=== PATIENT | female | born 1990 | race Caucasian/White ===

== ENCOUNTER 2021-02-24 11:18 | Outpatient (CLI) | payer OTHER ==
[2021-02-24 11:50] VITALS: BP 108/59
--- NOTE | 2021-02-24 12:25 | PROVIDER PROGRESS NOTE ---
- HPI Chief Complaint: Labor Current : Vital Signs Temperature 98.2 F 02/24/21 11:44 Heart Rate 75 02/24/21 11:44 Respiratory Rate 17 02/24/21 11:44 Blood Pressure 108/59 L 02/24/21 11:44 O2 Saturation 100 02/24/21 11:44 Temperature 98.2 F 02/24/21 11:44 Heart Rate 75 02/24/21 11:44 Respiratory Rate 17 02/24/21 11:44 Blood Pressure 108/59 L 02/24/21 11:44 O2 Saturation 100 02/24/21 11:44 - Procedures OB Procedure Performed: NST Diagnosis/Indication for NST: labor NST Procedure: NST [id number] for labor 150s, moderate variability, no decelerations, positive accelerations [place]: no contractions NST reactive - Plan Plan: 30yo at 25.3w presenting with cramping starting this morning. Denies leaking fluid or vaginal bleeding. Also reports she tripped yesterday and fell on her hands and knees, denies abdominal trauma. Fall yesterday morning and has not had any bleeding since that time. She lives in [place], care at [facility] due to SVT. otherwise uncomplicated. Allergies: ventolin, peanuts Meds: Metoprolol Med: SVT Surg: ablation for SVT Social: Denies DEEPAK Fam: noncontributory VSS GEN: NAD CV: Regular rate Resp: Breathing unlabored Abd: soft, nt Ext: nt, no edema TV US: CL 3.8cm NST reactive, not rosanna 30yo at 25.3w, false labor second trimester - monitoring reassuring - labor precautions - Follow up as scheduled with primary OB
== END 2021-02-24 12:30 | disposition home or self-care (01) ==
LOC: WFO 11:18 → FBP 11:24 → WFO 12:30
PROVIDERS: ATTEND Obstetrics & Gynecology
DX: O47.02 False labor before 37 completed weeks of gestation, second trimester (principal); Z3A.25 25 weeks gestation of pregnancy; Z86.79 Personal history of other diseases of the circulatory system; Z79.899 Other long term (current) drug therapy
CPT/HCPCS: 99214

== ENCOUNTER 2021-04-05 02:53 | Emergency (ER) | payer OTHER ==
[2021-04-05 03:08] VITALS: BP 124/69
--- NOTE | 2021-04-05 03:54 | ED Physician Documentation ---
History of Present Illness - Stated complaint Stated Complaint: EDEMA - Chief complaint Chief Complaint: Ext Problem - History obtained from History obtained from: Patient - Additonal information Additional information: 30yF with pmh SVT on metoprolol, currently 30 and 1 (lmp 8) c/by polyhydramnios on recent ultrasound p/w LLE>RLE swelling for the past 18 hours. patient was sent from thursday [facility] for ultrasound. denies pain, erythema, calor to calf but states her small dog has been jumping on both legs lately and she has ecchymosis to the L calf>R. denies soa at present, cough, hemoptysis, history of clots. She had BL leg swelling last week and was on a short course of lasix. denies urinary sx , contractions, vag bleeding or abnormal discharge. Review of Systems Ten Systems: 10 systems reviewed and negative Constitutional: denies: Fever, Chills Cardiac: denies: Chest pain / pressure Respiratory: denies: Dyspnea, Cough GI: denies: Abdominal Pain PD PAST MEDICAL HISTORY - Present Medications Home Medications: Ambulatory Orders Medication Instructions Recorded Confirmed Metoprolol Succinate [Toprol Xl] 25 mg PO ONCE 04/05/21 04/05/21 Pnv No.95/Ferrous Fum/Folic AC 1 tab PO DAILY 04/05/21 04/05/21 [ Caplet] - Allergies Allergies/Adverse Reactions: Allergies Allergy/AdvReac Type Severity Reaction Status Date / Time albuterol [From Ventolin HFA] AdvReac Unknown Verified 04/05/21 03:09 shrimp AdvReac Unknown Verified 04/05/21 03:09 PD ED PE NORMAL - Vitals Vital signs reviewed: Yes - General General: Alert and oriented X 3, No acute distress, Well developed/nourished - HEENT HEENT: Atraumatic, PERRL, EOMI - Neck Neck: Supple, no meningeal sign - Cardiac Cardiac: RRR - Respiratory Respiratory: No respiratory distress, Clear bilaterally - Abdomen Abdomen: Non tender, Non distended - Derm Derm: Normal color, Warm and dry - Extremities Extremities: No deformity, No calf tenderness / cord, Other (BL 1+ edema. BL posterior calves with ecchymosis in varying stages of healing) - Neuro Neuro: Alert and oriented X 3, No motor deficit, No sensory deficit - Psych Psych: Normal mood, Normal affect Results - Vitals Vitals: Vital Signs - 24 hr 04/05/21 02:58 Temperature 36.6 C Heart Rate 73 Respiratory 16 Rate Blood Pressure 124/69 O2 Saturation 98 Oxygen O2 Source Room air PD MEDICAL DECISION MAKING - ED course ED course: HR 142. patient had bloodwork done today that was unremarkable with exception of elevated d-dimer 900 and was sent here for ultrasound. We have no patient care technician instructor in the hospital at night and are limiting studies for call in, therefore I advised her to keep her appointment at for noon today and to request her ob- ob/gyn doctor Dr. Zabala order outpatient ultrasound at that time. Strict return precautions given. Departure - Departure Disposition: 01 Home, Self Care Clinical Impression: Leg swelling Condition: Good Instructions: ED Leg Swelling Unilateral Comments: You were seen in the ED for evaluation of leg swelling. Please follow up with your appointment with your automobile drivers at noon today for outpatient ultrasound to evaluate for DVT. Return to the ED if you develop new or worsening symptoms or have other concerns.
== END 2021-04-05 03:54 | disposition home or self-care (01) ==
LOC: ED 02:53
DX: O12.03 Gestational edema, third trimester (principal); Z3A.31 31 weeks gestation of pregnancy
CPT/HCPCS: 99281; 99283

== ENCOUNTER 2021-06-01 02:00 | Outpatient (CLI) | payer OTHER | END 2021-06-01 02:01 | disposition critical access hospital (66) | LOC: EMS 02:00 | DX: O90.89 Other complications of the puerperium, not elsewhere classified (principal); M54.50 Low back pain, unspecified; R11.0 Nausea | CPT/HCPCS: A0425; A0427 ==

== ENCOUNTER 2021-06-01 02:21 | Inpatient (IN) | payer OTHER ==
--- NOTE | 2021-06-01 02:37 | ED Physician Documentation ---
PD HPI ABD PAIN - Stated complaint Stated Complaint: NAUSEA/BACK PX - Additional information Additional information: Patient is a 30-year-old female, presenting to the emergency department with past medical significant for recent hospitalization, and delivery in setting of preeclampsia with chief complaints of abdominal pain, nausea, vomiting. Reports discharge from the [facility] a few days ago after delivery due to arrest at 6 cm. Reports initially she was having abdominal pain with nausea and vomiting which prompted her to be evaluated at [facility], and when she was subsequently identified to be preeclamptic she was transferred to the [facility] for induction of labor. She returns today with abdominal, low back pain with associated nausea vomiting which she reports her symptoms similar to those which which she had originally. Review of Systems Ten Systems: 10 systems reviewed and negative Constitutional: denies: Fever Eyes: denies: Loss of vision Ears: denies: Loss of hearing Nose: denies: Rhinorrhea / runny nose Throat: denies: Dental pain / toothache Cardiac: denies: Chest pain / pressure GI: reports: Abdominal Pain, Nausea, Vomiting : denies: Dysuria Skin: denies: Rash Musculoskeletal: denies: Neck pain PD PAST MEDICAL HISTORY - Present Medications Home Medications: Ambulatory Orders Medication Instructions Recorded Confirmed Metoprolol Succinate [Toprol Xl] 25 mg PO ONCE 04/05/21 06/01/21 Pnv No.95/Ferrous Fum/Folic AC 1 tab PO DAILY 04/05/21 06/01/21 [ Caplet] Furosemide [Lasix] 20 mg PO DAILY 06/01/21 06/01/21 Furosemide [Lasix] 20 mg PO ONCE 06/01/21 06/01/21 Metoprolol Succinate [Toprol Xl] 25 mg PO ONCE 06/01/21 06/01/21 NIFEdipine [Procardia Xl] 30 mg PO DAILY 06/01/21 06/01/21 Oxycodone HCl [Roxicodone] 5 mg PO PRN PRN 06/01/21 06/01/21 Potassium Chloride 20 meq PO DAILY 06/01/21 06/01/21 - Allergies Allergies/Adverse Reactions: Allergies Allergy/AdvReac Type Severity Reaction Status Date / Time peanut Allergy Unknown Verified 06/01/21 02:37 albuterol [From Ventolin HFA] AdvReac Unknown Verified 04/05/21 03:09 shrimp AdvReac Unknown Verified 04/05/21 03:09 PD ED PE NORMAL - General General: Alert and oriented X 3 - HEENT HEENT: Atraumatic - Neck Neck: Supple, no meningeal sign - Cardiac Cardiac: RRR, No gallop - Respiratory Respiratory: No respiratory distress, Clear bilaterally - Abdomen Abdomen: Normal bowel sounds, Other (Diffuse lower quadrant tenderness). No: Non tender - Female Female : Deferred - Derm Derm: Normal color - Extremities Extremities: No deformity - Neuro Neuro: Alert and oriented X 3, robotic maintenance technician 2-12 intact, No motor deficit, No sensory deficit, Normal speech Results - Vitals Vitals: Vital Signs - 24 hr 06/01/21 06/01/21 06/01/21 02:30 02:57 05:03 Temperature 36.6 C Heart Rate 72 70 77 Respiratory 18 14 16 Rate Blood Pressure 155/93 H 138/83 H 132/79 H O2 Saturation 96 98 98 Oxygen O2 Source Room air - EKG (time done) 0316 Rate: Rate (enter#) (70) Rhythm: NSR [place]: Normal Intervals: Normal MT, QRS normal. No: Prolonged QT QRS: Normal Ischemia: Normal ST segments. No: Hyperacute T waves, T wave inversion Computer interpretation: Agree with computer - Labs Labs: Laboratory Tests 06/01/21 06/01/21 06/01/21 02:56 02:56 02:56 WBC 21.0 H RBC 3.40 L Hgb 10.6 L Hct 31.2 L MCV 91.8 MCH 31.2 H MCHC 34.0 RDW 13.8 Plt Count 338 MPV 9.2 Neut # (Auto) Not Reportable Lymph # (Auto) Not Reportable White # (Auto) Not Reportable Eos # (Auto) Not Reportable Baso # (Auto) Not Reportable Absolute Nucleated RBC Not Reportable Total Counted 100 Band Neuts % (Manual) 0 Abnorm Lymph % (Manual) 0 Nucleated RBC % Not Reportable Neutrophils # (Manual) 17.2 H Lymphocytes # (Manual) 2.3 Monocytes # (Manual) 1.1 H Eosinophils # (Manual) 0.4 Basophils # (Manual) 0.0 Nucleated RBCs 1 Differential Comment MANUAL DIFFERENTIAL WBC Morphology NORMAL APPEARANCE Platelet Estimate NORMAL (130-450,000) Platelet Morphology NORMAL APPEARANCE RBC Morph Micro Appear NORMAL APPEARANCE PT 10.0 INR 0.9 Sodium 136 Potassium 4.0 Chloride 102 Carbon Dioxide 22 Anion Gap 12.0 BUN 20 Creatinine 0.7 Estimated GFR (MDRD) 98 Glucose 121 H Lactic Acid Calcium 9.0 Phosphorus 3.5 Magnesium 1.9 Total Bilirubin 0.8 AST 25 ALT 18 Alkaline Phosphatase 134 H Total Creatine Kinase 16 L B-Natriuretic Peptide Total Protein 7.3 Albumin 3.3 Globulin 4.0 Albumin/Globulin Ratio 0.8 L Lipase 30 TSH Urine Color Urine Clarity Urine pH Ur Specific [place] Urine Protein Urine Glucose (UA) Urine Ketones Urine Occult Blood Urine Nitrite Urine Bilirubin Urine Urobilinogen Ur Leukocyte Esterase Urine RBC Urine WBC Ur Squamous Epith Cells Urine Bacteria Ur Microscopic Review Urine Culture Comments Urine Opiates Screen Ur Oxycodone Screen Urine Methadone Screen Ur Propoxyphene Screen Ur Barbiturates Screen Ur Tricyclics Screen Ur Phencyclidine Scrn Ur Amphetamine Screen U Methamphetamines Scrn U Benzodiazepines Scrn Urine Cocaine Screen U Cannabinoids Screen Ethyl Alcohol < 5.0 06/01/21 06/01/21 06/01/21 02:56 02:56 03:06 WBC RBC Hgb Hct MCV MCH MCHC RDW Plt Count MPV Neut # (Auto) Lymph # (Auto) White # (Auto) Eos # (Auto) Baso # (Auto) Absolute Nucleated RBC Total Counted Band Neuts % (Manual) Abnorm Lymph % (Manual) Nucleated RBC % Neutrophils # (Manual) Lymphocytes # (Manual) Monocytes # (Manual) Eosinophils # (Manual) Basophils # (Manual) Nucleated RBCs Differential Comment WBC Morphology Platelet Estimate Platelet Morphology RBC Morph Micro Appear PT INR Sodium Potassium Chloride Carbon Dioxide Anion Gap BUN Creatinine Estimated GFR (MDRD) Glucose Lactic Acid 0.9 Calcium Phosphorus Magnesium Total Bilirubin AST ALT Alkaline Phosphatase Total Creatine Kinase B-Natriuretic Peptide 15 Total Protein Albumin Globulin Albumin/Globulin Ratio Lipase TSH 1.34 Urine Color Urine Clarity Urine pH Ur Specific [place] Urine Protein Urine Glucose (UA) Urine Ketones Urine Occult Blood Urine Nitrite Urine Bilirubin Urine Urobilinogen Ur Leukocyte Esterase Urine RBC Urine WBC Ur Squamous Epith Cells Urine Bacteria Ur Microscopic Review Urine Culture Comments Urine Opiates Screen Ur Oxycodone Screen Urine Methadone Screen Ur Propoxyphene Screen Ur Barbiturates Screen Ur Tricyclics Screen Ur Phencyclidine Scrn Ur Amphetamine Screen U Methamphetamines Scrn U Benzodiazepines Scrn Urine Cocaine Screen U Cannabinoids Screen Ethyl Alcohol 06/01/21 06/01/21 04:15 04:15 WBC RBC Hgb Hct MCV MCH MCHC RDW Plt Count MPV Neut # (Auto) Lymph # (Auto) White # (Auto) Eos # (Auto) Baso # (Auto) Absolute Nucleated RBC Total Counted Band Neuts % (Manual) Abnorm Lymph % (Manual) Nucleated RBC % Neutrophils # (Manual) Lymphocytes # (Manual) Monocytes # (Manual) Eosinophils # (Manual) Basophils # (Manual) Nucleated RBCs Differential Comment WBC Morphology Platelet Estimate Platelet Morphology RBC Morph Micro Appear PT INR Sodium Potassium Chloride Carbon Dioxide Anion Gap BUN Creatinine Estimated GFR (MDRD) Glucose Lactic Acid Calcium Phosphorus Magnesium Total Bilirubin AST ALT Alkaline Phosphatase Total Creatine Kinase B-Natriuretic Peptide Total Protein Albumin Globulin Albumin/Globulin Ratio Lipase TSH Urine Color YELLOW Urine Clarity CLEAR Urine pH 6.5 Ur Specific [place] 1.015 Urine Protein NEGATIVE Urine Glucose (UA) NEGATIVE Urine Ketones NEGATIVE Urine Occult Blood MODERATE H Urine Nitrite NEGATIVE Urine Bilirubin NEGATIVE Urine Urobilinogen 0.2 (NORMAL) Ur Leukocyte Esterase NEGATIVE Urine RBC 6-10 H Urine WBC 0-3 Ur Squamous Epith Cells MOD Squamous H Urine Bacteria Rare Ur Microscopic Review INDICATED Urine Culture Comments NOT INDICATED Urine Opiates Screen NEGATIVE Ur Oxycodone Screen NEGATIVE Urine Methadone Screen NEGATIVE Ur Propoxyphene Screen NEGATIVE Ur Barbiturates Screen NEGATIVE Ur Tricyclics Screen NEGATIVE Ur Phencyclidine Scrn NEGATIVE Ur Amphetamine Screen NEGATIVE U Methamphetamines Scrn NEGATIVE U Benzodiazepines Scrn NEGATIVE Urine Cocaine Screen NEGATIVE U Cannabinoids Screen NEGATIVE Ethyl Alcohol PD MEDICAL DECISION MAKING - ED course Complexity details: d/w patient, d/w nursing education consultant ED course: Patient is a 30-year-old female with past medical significant for recent delivery in setting of preeclampsia presenting to the emergency d epartment with elevated blood pressure, back pain, abdominal pain with associated nausea and vomiting. Arrival to the emergency department with blood pressure initial systolicsGreater than 155. Acutely distressed on arrival with low level tachycardia. IV access was obtained, IV magnesium initiated. Did order for comprehensive labs. Patient's care was discussed with CUSTOM FRAME ASSEMBLER, Dr. Longo. Labs obtained demonstrated a leukocytosis with white blood cell count 21 but no significant electrolyte abnormality or renal disease. Patient was given medication for pain and nausea in the emergency department. Her blood pressure did respond to 2 IV magnesium with repeat systolics in the 130s. She was transferred from the emergency department to L&D for further evaluation and treatment. Departure - Departure Disposition: [address] [place] [address]/[facility] Clinical Impression: Preeclampsia
[2021-06-01] MEDS ORDERED: MAGNESIUM SULFATE 4 GRAM 4 GM/50 ML BAG IV ONE (02:41)
[2021-06-01] MEDS ORDERED: MAGNESIUM SULFATE 2 GRAM 4 GM/100 ML BAG IV ONE (02:56)
[2021-06-01] MEDS ORDERED: IOVERSOL 320 50 ML VIAL ONE (03:11)
[2021-06-01 03:13] LABS: BASOPHILS % (AUTO) 0.4 %; EOSINOPHILS % (AUTO) 1.1 %; HCT - HEMATOCRIT 31.2 % (37.0-47.0); HGB - HEMOGLOBIN 10.6 g/dL (12.0-16.0); LYMPHOCYTES % (AUTO) 9.6 %; MEAN CORPUSCULAR HEMOGLOBIN 31.2 pg (27.0-31.0); MEAN CORPUSCULAR VOLUME 91.8 fL (81.0-99.0); MEAN PLATELET VOLUME 9.2 fL (7.9-10.8); MONOCYTES % (AUTO) 5.3 %; NEUTROPHILS % (AUTO) 77.3 %; PLT - PLATELET COUNT 338 10^3/uL (130-450); RED CELL DISTRIBUTION WIDTH 13.8 % (12.0-15.0)
[2021-06-01 03:14] LABS: ABNORMAL LYMPHS % (MANUAL) 0 %; BAND NEUTROPHILS % (MANUAL) 0 %
[2021-06-01 03:21] LABS: INR 0.9 (0.8-1.2)
[2021-06-01 03:28] LABS: ALBUMIN 3.3 g/dL (3.2-5.5); ALBUMIN/GLOBULIN RATIO 0.8 (1.0-2.2); ALKALINE PHOSPHATASE 134 IU/L (42-121); ALT ALANINE AMINOTRANSFERASE 18 IU/L (10-60); AST ASPARTATE AMINOTRANSFERASE 25 IU/L (10-42); BILIRUBIN,TOTAL 0.8 mg/dL (0.2-1.0); BUN - BLOOD UREA NITROGEN 20 mg/dL (6-20); CARBON DIOXIDE - CO2 22 mmol/L (21-32); CHLORIDE 102 mmol/L (101-111); CK- CREATINE KINASE 16 IU/L (22-269); CREATININE 0.7 mg/dL (0.4-1.0); ETOH - ETHANOL < 5.0 mg/dL; GFR - MDRD 98 (>89); GLUCOSE 121 mg/dL (70-100); LIPASE 30 U/L (22-51); MAGNESIUM 1.9 mg/dL (1.7-2.8); PHOSPHORUS 3.5 mg/dL (2.5-4.6); SODIUM 136 mmol/L (135-145); TOTAL PROTEIN 7.3 g/dL (6.7-8.2)
[2021-06-01 03:33] LABS: EOSINOPHILS # (MANUAL) 0.4 10^3/uL (0-0.7); LYMPHOCYTES # (MANUAL) 2.3 10^3/uL (1.5-3.5); LYMPHOCYTES % (MANUAL) 11 %; MONOCYTES # (MANUAL) 1.1 10^3/uL (0.0-1.0); NEUTROPHILS # (MANUAL) 17.2 10^3/uL (1.5-6.6); NUCLEATED RBC (MANUAL) 1 %; PLATELET ESTIMATE, MANUAL NORMAL (130-450,000) (NORMAL); PLATELET MORPHOLOGY NORMAL APPEARANCE (NORMAL); RBC MORPHOLOGY (MULTIPLE) NORMAL APPEARANCE (NORMAL); WBC MORPHOLOGY (MULTIPLE) NORMAL APPEARANCE (NORMAL)
--- OUTSIDE RECORDS SUMMARY | 2021-06-01 03:33 | EXTERNAL MEDICAL SUMMARY RPT | Continuity of Care Document ---
:1990 Author Organization [facility] Address [address] [place] [address] Phone Care Team Providers Name Role Phone Miscellaneous, Doctor Unavailable Unavailable Allergies No information. Encounters No information. Medications No information. Problems Procedures date description facility [id number] [facility] Results No information.
[2021-06-01 03:34] LABS: DIFFERENTIAL COMMENT MANUAL DIFFERENTIAL
[2021-06-01] MEDS ORDERED: LORazepam 2 MG/ML VIAL IVP STA (04:37)
[2021-06-01 04:51] LABS: BILIRUBIN,URINE NEGATIVE (NEGATIVE); CLARITY,URINE CLEAR (CLEAR); GLUCOSE, URINE (UA) NEGATIVE (NEGATIVE); KETONES,URINE (UA) NEGATIVE (NEGATIVE); LEUKOCYTE ESTERASE, URINE NEGATIVE (NEGATIVE); MUDS CUTOFF CONCENTRATIONS CUTOFF CONC BELOW:; NITRITE,URINE NEGATIVE (NEGATIVE); OCCULT BLOOD,URINE MODERATE (NEGATIVE); PH,URINE 6.5 PH (5.0-7.5); PROTEIN,URINE NEGATIVE (NEGATIVE); UROBILINOGEN,URINE 0.2 (NORMAL) E.U./dL (NORMAL)
[2021-06-01 04:52] LABS: AMPHETAMINE SCREEN,URINE NEGATIVE (NEGATIVE); BARBITURATE SCREEN,UR NEGATIVE (NEGATIVE); BENZODIAZEPINES SCREEN, URINE NEGATIVE (NEGATIVE); COCAINE SCREEN URINE NEGATIVE (NEGATIVE); METHADONE SCREEN, URINE NEGATIVE (NEGATIVE); METHAMPHETAMINES SCREEN, URINE NEGATIVE (NEGATIVE); OPIATE SCREEN, URINE NEGATIVE (NEGATIVE); OXYCODONE SCREEN, URINE NEGATIVE (NEGATIVE); PROPOXYPHENE SCREEN, URINE NEGATIVE (NEGATIVE); THC CANNABINOID SCREEN, URINE NEGATIVE (NEGATIVE); TRICYCLIC ANTIDEPRESSANT,URINE NEGATIVE (NEGATIVE); WBC,URINE 0-3 /HPF (0-5)
[2021-06-01 04:53] LABS: BACTERIA,URINE Rare /HPF (None Seen); SQUAMOUS EPITHELIAL CELL,UR MOD Squamous (<= Few)
--- NOTE | 2021-06-01 05:48 | HISTORY & PHYSICAL EXAMINATION ---
History and Physical - History and Physical HPI: Patient is a 30-year-old presenting today 5 days from a primary low-transverse section after a failed induction of labor. She was in Thursday and began having back pain and, abdominal pain, nausea and vomiting. She initially presented to [facility] and was transferred to [facility] for her delivery. She developed preeclampsia with severe features and was started on magnesium sulfate and blood pressure control. She was discharged on day 3 with nifedipine XL 30 mg, furosemide 20 mg daily, potassium supplementation. With nausea and vomiting and 5/10 abdominal pain that felt like a band around her abdomen. Symptoms seem better after hydration and pain control in the ED. She presented today to the ED All other symptoms reviewed and were negative except per HPI. PMH SVT PSH Low-transverse section OB History G1 P1 1. 05/27/2021, 38 weeks, primary low-transverse section, failure to progress, preeclampsia severe features SH Denies tobacco, alcohol, drug Family History noncontributory Allergies Peanuts, albuterol, shrimp Medications Metoprolol succinate 12.5 mg every morning, 25 mg p.m. Furosemide 20 mg daily Potassium supplements Nifedipine XL 30 mg daily Physical exam: Temp Pulse Resp BP Pulse Ox 97.8 F 77 16 132/79 H 98 06/01/21 02:30 06/01/21 05:03 06/01/21 05:03 06/01/21 05:03 06/01/21 05:03 General: Alert when awakened, but falls asleep easily. No acute distress Head: Normal cephalic atraumatic Eyes: PERRLA, extraocular motions intact. Respiratory: Normal rate of respiration. No accessory muscle use, normal resp iratory effort. Cardiovascular: Regular rate and rhythm Abdomen: Soft, nondistended. Appropriately tender in abdomen. Incision clean, dry, intact. Steri-Strips in place. Small amount of bruising at the lower border of the incision. No guarding or rebound. Back: No CVA tenderness Extremities: Normal range of motion Neuro: Oriented x3. Normal movements Psych: Appropriate mood and affect. Normal judgment and insight Labs: Platelet: 338 AST/ALT: 25/18 Creatinine 0.7 Urine: Negative for protein WBC: 21.0 Plan 30-year-old G1, P1 presenting with preeclampsia severe features Preeclampsia severe features -Patient with severe range blood pressures and was started on magnesium sulfate in the ED. Upon my examination, blood pressures have normalized. -patient has received 4 g bolus of magnesium. Mag level currently pending. Patient had an issue clearing magnesium at [facility] during her stay. Will continue at 1 g/h and reassess with magnesium level. -As she is already received greater than 24 hours of magnesium sulfate, plan for abbreviated magnesium sulfate therapy as long as blood pressures remain nonsevere. Will reassess as the day goes. -Plan to discharge in 1-2 days. Status post primary low-transverse section -Incision remains healthy appearing. -Tylenol and ibuprofen for pain control Nausea: - unknown etiology at this time. Does feel better currently -Plan to reassess when patient is rested Leukocytosis -Unknown etiology at this time. Does not appear sick. May be related to pain versus postsurgical, but will monitor at this time. No fever, chills, discharge, uterine pain. Will continue to assess for possible infection. -Repeat CBC this afternoon SVT: -Continue home metoprolol. Pulses normal. -12.5mg in the morning, 25 mg at night. This is her regimen. Can likely return to once a day dosing, but will not make changes in the acute setting that may complicate recover.
[2021-06-01] MEDS ORDERED: MAGNESIUM SULFATE IN WATER 20 GM/500 ML IV.SOLN IV SCH (05:56)
[2021-06-01] MEDS ORDERED: LACTATED RINGERS 1,000 ML IV SCH ×2 (06:00→06:14)
[2021-06-01] MEDS: IBUPROFEN 600 MG TABLET PO SCH ×3 (06:48→18:34)
[2021-06-01] MEDS: ACETAMINOPHEN 500 MG TABLET PO SCH ×2 (06:48→15:03)
[2021-06-01] MEDS: SIMETHICONE CHEW 80 MG TABLET PO PRN ×2 (09:24→12:15)
[2021-06-01] MEDS: DOCUSATE SODIUM 100 MG CAPSULE PO PRN ×2 (09:24→21:20)
[2021-06-01] MEDS: METOPROLOL SUCCINATE 25 MG TABLET PO SCH (09:24)
[2021-06-01] MEDS: NIFEdipine ER 30 MG TABLET PO SCH (10:38)
[2021-06-01 14:25] LABS: HCT - HEMATOCRIT 29.4 % (37.0-47.0); HGB - HEMOGLOBIN 10.1 g/dL (12.0-16.0); MEAN CORPUSCULAR HEMOGLOBIN 31.3 pg (27.0-31.0); MEAN CORPUSCULAR HGB CONC 34.4 g/dL (32.0-36.0); RED BLOOD COUNT 3.23 10^6/uL (4.20-5.40); RED CELL DISTRIBUTION WIDTH 13.9 % (12.0-15.0)
[2021-06-01 14:34] LABS: ALBUMIN/GLOBULIN RATIO 0.8 (1.0-2.2); BILIRUBIN,TOTAL 0.7 mg/dL (0.2-1.0); CALCIUM 7.5 mg/dL (8.5-10.3); CREATININE 0.7 mg/dL (0.4-1.0); TOTAL PROTEIN 6.7 g/dL (6.7-8.2)
--- NOTE | 2021-06-01 16:59 | PROVIDER PROGRESS NOTE ---
Subjective - Prog Note Date Prog Note Date: 06/01/21 Prog Note Time: 16:56 - Subjective Pt reports feeling: Improved Subjective: Doing much better. No significant pain, nausea, discomfort. Does say she has been having soft stools but no diarrhea. Was taking MiraLAX. No vomiting since around time of delivery. Does have concern whether this could be related to her gallbladder. Discussed that she had mild elevation in alkaline phosphatase on admission, but this slight elevation is common in so may not be an issue. Currently normal. Jimenez's test negative. No significant abdominal pain at this time. While this is certainly a possibility, is less high on my differential. It is possible she was having a gallstone issue last week when she initially presented prior to her induction, but I do not have access to those labs. It was confounded by her preeclampsia picture, so we may not have an answer. As symptoms have resolved, will attempt to treat nausea to see if this alleviates symptoms. Still no source for leukocytosis, although this has gone down slightly. We will continue to monitor at this time. No signs of worsening preeclampsia at this time. Plan to continue magnesium sulfate until the 12-hour nate. Last magnesium level was therapeutic. Creatinine normal. Platelets, AST/ALT also normal. Plan for a.m. CBC/CMP Blood pressure normal, will continue nifedipine XR daily. Continue metoprolol for SVT. Tylenol, ibuprofen for pain control for pain. Objective - Vital Signs/Intake & Output Vital Signs: Vital Signs x48h Temp Pulse Resp BP Pulse Ox 06/01/21 16:20 97.7 F 93 17 118/68 97 06/01/21 15:00 88 16 124/73 99 06/01/21 14:00 97.7 F 94 16 124/78 99 06/01/21 13:00 97.7 F 87 18 121/72 99 06/01/21 12:00 97.7 F 87 17 130/70 99 06/01/21 11:00 97.7 F 79 16 120/61 98 06/01/21 10:00 97.7 F 80 16 122/68 99 Intake & Output: Intake & Output 05/29/21 05/30/21 05/31/21 06/01/21 23:59 23:59 23:59 23:59 Intake Total 917.917 Output Total 1475 Balance -557.083 - Lab Results Fish Bones: 06/01/21 14:16 06/01/21 14:16 Other Labs: Lab Results x24hrs 06/01/21 06/01/21 06/01/21 Range/Units 14:16 14:16 10:30 WBC 18.0 H (4.8-10.8) x10^3/uL RBC 3.23 L (4.20-5.40) 10^6/uL Hgb 10.1 L (12.0-16.0) g/dL Hct 29.4 L (37.0-47.0) % MCV 91.0 (81.0-99.0) fL MCH 31.3 H (27.0-31.0) pg MCHC 34.4 (32.0-36.0) g/dL RDW 13.9 (12.0-15.0) % Plt Count 305 (130-450) 10^3/uL MPV 9.0 (7.9-10.8) fL Neut # (Auto) Lymph # (Auto) [place] # (Auto) Eos # (Auto) Baso # (Auto) Absolute Nucleated RBC Total Counted Band Neuts % (Manual) (0 - 10) % Abnorm Lymph % (Manual) % Nucleated RBC % Neutrophils # (Manual) (1.5-6.6) 10^3/uL Lymphocytes # (Manual) (1.5-3.5) 10^3/uL Monocytes # (Manual) (0.0-1.0) 10^3/uL Eosinophils # (Manual) (0-0.7) 10^3/uL Basophils # (Manual) (0-0.1) 10^3/uL Nucleated RBCs % Differential Comment WBC Morphology (NORMAL) Platelet Estimate (NORMAL) Platelet Morphology (NORMAL) RBC Morph Micro Appear (NORMAL) PT (9.9-12.6) secs INR (0.8-1.2) Sodium 135 (135-145) mmol/L Potassium 4.0 (3.5-5.0) mmol/L Chloride 103 (101-111) mmol/L Carbon Dioxide 22 (21-32) mmol/L Anion Gap 10.0 (6-13) BUN 15 (6-20) mg/dL Creatinine 0.7 (0.4-1.0) mg/dL Estimated GFR (MDRD) 98 (>89) Glucose 105 H (70-100) mg/dL Lactic Acid (0.5-2.2) mmol/L Calcium 7.5 L (8.5-10.3) mg/dL Phosphorus (2.5-4.6) mg/dL Magnesium 6.0 H* (1.7-2.8) mg/dL Total Bilirubin 0.7 (0.2-1.0) mg/dL AST 23 (10-42) IU/L ALT 15 (10-60) IU/L Alkaline Phosphatase 118 (42-121) IU/L Total Creatine Kinase (22-269) IU/L B-Natriuretic Peptide (5-100) pg/mL Total Protein 6.7 (6.7-8.2) g/dL Albumin 3.0 L (3.2-5.5) g/dL Globulin 3.7 (2.1-4.2) g/dL Albumin/Globulin Ratio 0.8 L (1.0-2.2) Lipase (22-51) U/L TSH (0.34-5.60) uIU/mL Urine Color Urine Clarity (CLEAR) Urine pH (5.0-7.5) PH Ur Specific [place] (1.002-1.030) Urine Protein (NEGATIVE) mg/dL Urine Glucose (UA) (NEGATIVE) mg/dL Urine Ketones (NEGATIVE) mg/dL Urine Occult Blood (NEGATIVE) Urine Nitrite (NEGATIVE) Urine Bilirubin (NEGATIVE) Urine Urobilinogen (NORMAL) E.U./dL Ur Leukocyte Esterase (NEGATIVE) Urine RBC (0-5) /HPF Urine WBC (0-5) /HPF Ur Squamous Epith Cells (<= Few) Urine Bacteria (None Seen) /HPF Ur Microscopic Review Urine Culture Comments Urine Opiates Screen (NEGATIVE) Ur Oxycodone Screen (NEGATIVE) Urine Methadone Screen (NEGATIVE) Ur Propoxyphene Screen (NEGATIVE) Ur Barbiturates Screen (NEGATIVE) Ur Tricyclics Screen (NEGATIVE) Ur Phencyclidine Scrn (NEGATIVE) Ur Amphetamine Screen (NEGATIVE) U Methamphetamines Scrn (NEGATIVE) U Benzodiazepines Scrn (NEGATIVE) Urine Cocaine Screen (NEGATIVE) U Cannabinoids Screen (NEGATIVE) Ethyl Alcohol mg/dL SARS-CoV-2 (PCR) 06/01/21 06/01/21 06/01/21 Range/Units 06:11 05:02 04:15 WBC (4.8-10.8) x10^3/uL RBC (4.20-5.40) 10^6/uL Hgb (12.0-16.0) g/dL Hct (37.0-47.0) % MCV (81.0-99.0) fL MCH (27.0-31.0) pg MCHC (32.0-36.0) g/dL RDW (12.0-15.0) % Plt Count (130-450) 10^3/uL MPV (7.9-10.8) fL Neut # (Auto) Lymph # (Auto) [place] # (Auto) Eos # (Auto) Baso # (Auto) Absolute Nucleated RBC Total Counted Band Neuts % (Manual) (0 - 10) % Abnorm Lymph % (Manual) % Nucleated RBC % Neutrophils # (Manual) (1.5-6.6) 10^3/uL Lymphocytes # (Manual) (1.5-3.5) 10^3/uL Monocytes # (Manual) (0.0-1.0) 10^3/uL Eosinophils # (Manual) (0-0.7) 10^3/uL Basophils # (Manual) (0-0.1) 10^3/uL Nucleated RBCs % Differential Comment WBC Morphology (NORMAL) Platelet Estimate (NORMAL) Platelet Morphology (NORMAL) RBC Morph Micro Appear (NORMAL) PT (9.9-12.6) secs INR (0.8-1.2) Sodium (135-145) mmol/L Potassium (3.5-5.0) mmol/L Chloride (101-111) mmol/L Carbon Dioxide (21-32) mmol/L Anion Gap (6-13) BUN (6-20) mg/dL Creatinine (0.4-1.0) mg/dL Estimated GFR (MDRD) (>89) Glucose (70-100) mg/dL Lactic Acid (0.5-2.2) mmol/L Calcium (8.5-10.3) mg/dL Phosphorus (2.5-4.6) mg/dL Magnesium 3.2 H (1.7-2.8) mg/dL Total Bilirubin (0.2-1.0) mg/dL AST (10-42) IU/L ALT (10-60) IU/L Alkaline Phosphatase (42-121) IU/L Total Creatine Kinase (22-269) IU/L B-Natriuretic Peptide (5-100) pg/mL Total Protein (6.7-8.2) g/dL Albumin (3.2-5.5) g/dL Globulin (2.1-4.2) g/dL Albumin/Globulin Ratio (1.0-2.2) Lipase (22-51) U/L TSH (0.34-5.60) uIU/mL Urine Color YELLOW Urine Clarity CLEAR (CLEAR) Urine pH 6.5 (5.0-7.5) PH Ur Specific [place] 1.015 (1.002-1.030) Urine Protein NEGATIVE (NEGATIVE) mg/dL Urine Glucose (UA) NEGATIVE (NEGATIVE) mg/dL Urine Ketones NEGATIVE (NEGATIVE) mg/dL Urine Occult Blood MODERATE H (NEGATIVE) Urine Nitrite NEGATIVE (NEGATIVE) Urine Bilirubin NEGATIVE (NEGATIVE) Urine Urobilinogen 0.2 (NORMAL) (NORMAL) E.U./dL Ur Leukocyte Esterase NEGATIVE (NEGATIVE) Urine RBC 6-10 H (0-5) /HPF Urine WBC 0-3 (0-5) /HPF Ur Squamous Epith Cells MOD Squamous H (<= Few) Urine Bacteria Rare (None Seen) /HPF Ur Microscopic Review INDICATED Urine Culture Comments NOT INDICATED Urine Opiates Screen (NEGATIVE) Ur Oxycodone Screen (NEGATIVE) Urine Methadone Screen (NEGATIVE) Ur Propoxyphene Screen (NEGATIVE) Ur Barbiturates Screen (NEGATIVE) Ur Tricyclics Screen (NEGATIVE) Ur Phencyclidine Scrn (NEGATIVE) Ur Amphetamine Screen (NEGATIVE) U Methamphetamines Scrn (NEGATIVE) U Benzodiazepines Scrn (NEGATIVE) Urine Cocaine Screen (NEGATIVE) U Cannabinoids Screen (NEGATIVE) Ethyl Alcohol mg/dL SARS-CoV-2 (PCR) NOT DETECTED 06/01/21 06/01/21 06/01/21 Range/Units 04:15 03:06 02:56 WBC (4.8-10.8) x10^3/uL RBC (4.20-5.40) 10^6/uL Hgb (12.0-16.0) g/dL Hct (37.0-47.0) % MCV (81.0-99.0) fL MCH (27.0-31.0) pg MCHC (32.0-36.0) g/dL RDW (12.0-15.0) % Plt Count (130-450) 10^3/uL MPV (7.9-10.8) fL Neut # (Auto) Lymph # (Auto) [place] # (Auto) Eos # (Auto) Baso # (Auto) Absolute Nucleated RBC Total Counted Band Neuts % (Manual) (0 - 10) % Abnorm Lymph % (Manual) % Nucleated RBC % Neutrophils # (Manual) (1.5-6.6) 10^3/uL Lymphocytes # (Manual) (1.5-3.5) 10^3/uL Monocytes # (Manual) (0.0-1.0) 10^3/uL Eosinophils # (Manual) (0-0.7) 10^3/uL Basophils # (Manual) (0-0.1) 10^3/uL Nucleated RBCs % Differential Comment WBC Morphology (NORMAL) Platelet Estimate (NORMAL) Platelet Morphology (NORMAL) RBC Morph Micro Appear (NORMAL) PT (9.9-12.6) secs INR (0.8-1.2) Sodium (135-145) mmol/L Potassium (3.5-5.0) mmol/L Chloride (101-111) mmol/L Carbon Dioxide (21-32) mmol/L Anion Gap (6-13) BUN (6-20) mg/dL Creatinine (0.4-1.0) mg/dL Estimated GFR (MDRD) (>89) Glucose (70-100) mg/dL Lactic Acid 0.9 (0.5-2.2) mmol/L Calcium (8.5-10.3) mg/dL Phosphorus (2.5-4.6) mg/dL Magnesium (1.7-2.8) mg/dL Total Bilirubin (0.2-1.0) mg/dL AST (10-42) IU/L ALT (10-60) IU/L Alkaline Phosphatase (42-121) IU/L Total Creatine Kinase (22-269) IU/L B-Natriuretic Peptide (5-100) pg/mL Total Protein (6.7-8.2) g/dL Albumin (3.2-5.5) g/dL Globulin (2.1-4.2) g/dL Albumin/Globulin Ratio (1.0-2.2) Lipase (22-51) U/L TSH 1.34 (0.34-5.60) uIU/mL Urine Color Urine Clarity (CLEAR) Urine pH (5.0-7.5) PH Ur Specific [place] (1.002-1.030) Urine Protein (NEGATIVE) mg/dL Urine Glucose (UA) (NEGATIVE) mg/dL Urine Ketones (NEGATIVE) mg/dL Urine Occult Blood (NEGATIVE) Urine Nitrite (NEGATIVE) Urine Bilirubin (NEGATIVE) Urine Urobilinogen (NORMAL) E.U./dL Ur Leukocyte Esterase (NEGATIVE) Urine RBC (0-5) /HPF Urine WBC (0-5) /HPF Ur Squamous Epith Cells (<= Few) Urine Bacteria (None Seen) /HPF Ur Microscopic Review Urine Culture Comments Urine Opiates Screen NEGATIVE (NEGATIVE) Ur Oxycodone Screen NEGATIVE (NEGATIVE) Urine Methadone Screen NEGATIVE (NEGATIVE) Ur Propoxyphene Screen NEGATIVE (NEGATIVE) Ur Barbiturates Screen NEGATIVE (NEGATIVE) Ur Tricyclics Screen NEGATIVE (NEGATIVE) Ur Phencyclidine Scrn NEGATIVE (NEGATIVE) Ur Amphetamine Screen NEGATIVE (NEGATIVE) U Methamphetamines Scrn NEGATIVE (NEGATIVE) U Benzodiazepines Scrn NEGATIVE (NEGATIVE) Urine Cocaine Screen NEGATIVE (NEGATIVE) U Cannabinoids Screen NEGATIVE (NEGATIVE) Ethyl Alcohol mg/dL SARS-CoV-2 (PCR) 06/01/21 06/01/21 06/01/21 Range/Units 02:56 02:56 02:56 WBC (4.8-10.8) x10^3/uL RBC (4.20-5.40) 10^6/uL Hgb (12.0-16.0) g/dL Hct (37.0-47.0) % MCV (81.0-99.0) fL MCH (27.0-31.0) pg MCHC (32.0-36.0) g/dL RDW (12.0-15.0) % Plt Count (130-450) 10^3/uL MPV (7.9-10.8) fL Neut # (Auto) Lymph # (Auto) [place] # (Auto) Eos # (Auto) Baso # (Auto) Absolute Nucleated RBC Total Counted Band Neuts % (Manual) (0 - 10) % Abnorm Lymph % (Manual) % Nucleated RBC % Neutrophils # (Manual) (1.5-6.6) 10^3/uL Lymphocytes # (Manual) (1.5-3.5) 10^3/uL Monocytes # (Manual) (0.0-1.0) 10^3/uL Eosinophils # (Manual) (0-0.7) 10^3/uL Basophils # (Manual) (0-0.1) 10^3/uL Nucleated RBCs % Differential Comment WBC Morphology (NORMAL) Platelet Estimate (NORMAL) Platelet Morphology (NORMAL) RBC Morph Micro Appear (NORMAL) PT 10.0 (9.9-12.6) secs INR 0.9 (0.8-1.2) Sodium 136 (135-145) mmol/L Potassium 4.0 (3.5-5.0) mmol/L Chloride 102 (101-111) mmol/L Carbon Dioxide 22 (21-32) mmol/L Anion Gap 12.0 (6-13) BUN 20 (6-20) mg/dL Creatinine 0.7 (0.4-1.0) mg/dL Estimated GFR (MDRD) 98 (>89) Glucose 121 H (70-100) mg/dL Lactic Acid (0.5-2.2) mmol/L Calcium 9.0 (8.5-10.3) mg/dL Phosphorus 3.5 (2.5-4.6) mg/dL Magnesium 1.9 (1.7-2.8) mg/dL Total Bilirubin 0.8 (0.2-1.0) mg/dL AST 25 (10-42) IU/L ALT 18 (10-60) IU/L Alkaline Phosphatase 134 H (42-121) IU/L Total Creatine Kinase 16 L (22-269) IU/L B-Natriuretic Peptide 15 (5-100) pg/mL Total Protein 7.3 (6.7-8.2) g/dL Albumin 3.3 (3.2-5.5) g/dL Globulin 4.0 (2.1-4.2) g/dL Albumin/Globulin Ratio 0.8 L (1.0-2.2) Lipase 30 (22-51) U/L TSH (0.34-5.60) uIU/mL Urine Color Urine Clarity (CLEAR) Urine pH (5.0-7.5) PH Ur Specific [place] (1.002-1.030) Urine Protein (NEGATIVE) mg/dL Urine Glucose (UA) (NEGATIVE) mg/dL Urine Ketones (NEGATIVE) mg/dL Urine Occult Blood (NEGATIVE) Urine Nitrite (NEGATIVE) Urine Bilirubin (NEGATIVE) Urine Urobilinogen (NORMAL) E.U./dL Ur Leukocyte Esterase (NEGATIVE) Urine RBC (0-5) /HPF Urine WBC (0-5) /HPF Ur Squamous Epith Cells (<= Few) Urine Bacteria (None Seen) /HPF Ur Microscopic Review Urine Culture Comments Urine Opiates Screen (NEGATIVE) Ur Oxycodone Screen (NEGATIVE) Urine Methadone Screen (NEGATIVE) Ur Propoxyphene Screen (NEGATIVE) Ur Barbiturates Screen (NEGATIVE) Ur Tricyclics Screen (NEGATIVE) Ur Phencyclidine Scrn (NEGATIVE) Ur Amphetamine Screen (NEGATIVE) U Methamphetamines Scrn (NEGATIVE) U Benzodiazepines Scrn (NEGATIVE) Urine Cocaine Screen (NEGATIVE) U Cannabinoids Screen (NEGATIVE) Ethyl Alcohol < 5.0 mg/dL SARS-CoV-2 (PCR) 06/01/21 Range/Units 02:56 WBC 21.0 H (4.8-10.8) x10^3/uL RBC 3.40 L (4.20-5.40) 10^6/uL Hgb 10.6 L (12.0-16.0) g/dL Hct 31.2 L (37.0-47.0) % MCV 91.8 (81.0-99.0) fL MCH 31.2 H (27.0-31.0) pg MCHC 34.0 (32.0-36.0) g/dL RDW 13.8 (12.0-15.0) % Plt Count 338 (130-450) 10^3/uL MPV 9.2 (7.9-10.8) fL Neut # (Auto) Not Reportable Lymph # (Auto) Not Reportable [place] # (Auto) Not Reportable Eos # (Auto) Not Reportable Baso # (Auto) Not Reportable Absolute Nucleated RBC Not Reportable Total Counted 100 Band Neuts % (Manual) 0 (0 - 10) % Abnorm Lymph % (Manual) 0 % Nucleated RBC % Not Reportable Neutrophils # (Manual) 17.2 H (1.5-6.6) 10^3/uL Lymphocytes # (Manual) 2.3 (1.5-3.5) 10^3/uL Monocytes # (Manual) 1.1 H (0.0-1.0) 10^3/uL Eosinophils # (Manual) 0.4 (0-0.7) 10^3/uL Basophils # (Manual) 0.0 (0-0.1) 10^3/uL Nucleated RBCs 1 % Differential Comment MANUAL DIFFERENTIAL WBC Morphology NORMAL APPEARANCE (NORMAL) Platelet Estimate NORMAL (130-450,000) (NORMAL) Platelet Morphology NORMAL APPEARANCE (NORMAL) RBC Morph Micro Appear NORMAL APPEARANCE (NORMAL) PT (9.9-12.6) secs INR (0.8-1.2) Sodium (135-145) mmol/L Potassium (3.5-5.0) mmol/L Chloride (101-111) mmol/L Carbon Dioxide (21-32) mmol/L Anion Gap (6-13) BUN (6-20) mg/dL Creatinine (0.4-1.0) mg/dL Estimated GFR (MDRD) (>89) Glucose (70-100) mg/dL Lactic Acid (0.5-2.2) mmol/L Calcium (8.5-10.3) mg/dL Phosphorus (2.5-4.6) mg/dL Magnesium (1.7-2.8) mg/dL Total Bilirubin (0.2-1.0) mg/dL AST (10-42) IU/L ALT (10-60) IU/L Alkaline Phosphatase (42-121) IU/L Total Creatine Kinase (22-269) IU/L B-Natriuretic Peptide (5-100) pg/mL Total Protein (6.7-8.2) g/dL Albumin (3.2-5.5) g/dL Globulin (2.1-4.2) g/dL Albumin/Globulin Ratio (1.0-2.2) Lipase (22-51) U/L TSH (0.34-5.60) uIU/mL Urine Color Urine Clarity (CLEAR) Urine pH (5.0-7.5) PH Ur Specific [place] (1.002-1.030) Urine Protein (NEGATIVE) mg/dL Urine Glucose (UA) (NEGATIVE) mg/dL Urine Ketones (NEGATIVE) mg/dL Urine Occult Blood (NEGATIVE) Urine Nitrite (NEGATIVE) Urine Bilirubin (NEGATIVE) Urine Urobilinogen (NORMAL) E.U./dL Ur Leukocyte Esterase (NEGATIVE) Urine RBC (0-5) /HPF Urine WBC (0-5) /HPF Ur Squamous Epith Cells (<= Few) Urine Bacteria (None Seen) /HPF Ur Microscopic Review Urine Culture Comments Urine Opiates Screen (NEGATIVE) Ur Oxycodone Screen (NEGATIVE) Urine Methadone Screen (NEGATIVE) Ur Propoxyphene Screen (NEGATIVE) Ur Barbiturates Screen (NEGATIVE) Ur Tricyclics Screen (NEGATIVE) Ur Phencyclidine Scrn (NEGATIVE) Ur Amphetamine Screen (NEGATIVE) U Methamphetamines Scrn (NEGATIVE) U Benzodiazepines Scrn (NEGATIVE) Urine Cocaine Screen (NEGATIVE) U Cannabinoids Screen (NEGATIVE) Ethyl Alcohol mg/dL SARS-CoV-2 (PCR)
[2021-06-01] MEDS ORDERED: METOPROLOL SUCCINATE 25 MG TABLET PO SCH (21:00)
[2021-06-02] MEDS: IBUPROFEN 600 MG TABLET PO SCH ×3 (00:08→08:40)
[2021-06-02] MEDS: ACETAMINOPHEN 500 MG TABLET PO SCH ×3 (00:08→08:40)
[2021-06-02 05:16] LABS: BASOPHILS % (AUTO) 0.5 %; EOSINOPHILS % (AUTO) 1.5 %; HCT - HEMATOCRIT 28.8 % (37.0-47.0); HGB - HEMOGLOBIN 9.8 g/dL (12.0-16.0); LYMPHOCYTES % (AUTO) 15.1 %; MEAN CORPUSCULAR VOLUME 91.1 fL (81.0-99.0); MEAN PLATELET VOLUME 8.9 fL (7.9-10.8); MONOCYTES % (AUTO) 7.8 %; NEUTROPHILS % (AUTO) 68.6 %; PLT - PLATELET COUNT 308 10^3/uL (130-450); RED BLOOD COUNT 3.16 10^6/uL (4.20-5.40); RED CELL DISTRIBUTION WIDTH 13.8 % (12.0-15.0); WHITE BLOOD COUNT 13.2 x10^3/uL (4.8-10.8)
[2021-06-02 05:19] LABS: ABNORMAL LYMPHS % (MANUAL) 0 %; BAND NEUTROPHILS % (MANUAL) 0 %
[2021-06-02 05:27] LABS: ALBUMIN/GLOBULIN RATIO 0.8 (1.0-2.2); BILIRUBIN,TOTAL 0.6 mg/dL (0.2-1.0); CALCIUM 7.8 mg/dL (8.5-10.3); CREATININE 0.8 mg/dL (0.4-1.0); POTASSIUM 4.3 mmol/L (3.5-5.0); TOTAL PROTEIN 6.6 g/dL (6.7-8.2)
[2021-06-02 05:52] LABS: DIFFERENTIAL COMMENT MANUAL DIFFERENTIAL; EOSINOPHILS # (MANUAL) 0.3 10^3/uL (0-0.7); LYMPHOCYTES # (MANUAL) 2.4 10^3/uL (1.5-3.5); LYMPHOCYTES % (MANUAL) 18 %; MONOCYTES # (MANUAL) 0.9 10^3/uL (0.0-1.0); NEUTROPHILS # (MANUAL) 9.6 10^3/uL (1.5-6.6); NUCLEATED RBC (MANUAL) 1 %; PLATELET ESTIMATE, MANUAL NORMAL (130-450,000) (NORMAL); PLATELET MORPHOLOGY NORMAL APPEARANCE (NORMAL); RBC MORPHOLOGY (MULTIPLE) NORMAL APPEARANCE (NORMAL); WBC MORPHOLOGY (MULTIPLE) NORMAL APPEARANCE (NORMAL)
[2021-06-02] MEDS: DOCUSATE SODIUM 100 MG CAPSULE PO PRN (09:32)
[2021-06-02] MEDS: NIFEdipine ER 30 MG TABLET PO SCH (09:32)
[2021-06-02] MEDS: METOPROLOL SUCCINATE 25 MG TABLET PO SCH (09:32)
[2021-06-02 12:03] VITALS: BP 126/70
--- NOTE | 2021-06-02 13:43 | Discharge Plan ---
Discharge Plan Problem Reviewed?: Yes Disposition: Home, Self Care Condition: Good Prescriptions: Ondansetron HCl 4 mg PO Q6HR PRN #20 tablet PRN Reason: Nausea / Vomiting Diet: Regular Activity Restrictions: Additional Comments (As indicated by primary provider after section) Shower Restrictions: No Instruction Topics: Preeclampsia No Smoking: If you smoke, Please STOP! Call for help. Follow-up with: Shamika Zabala MD [Physician No Access] -
--- NOTE | 2021-06-02 13:44 | DISCHARGE SUMMARY ---
Discharge Summary Admit Date: 06/01/22 Discharge Date: 06/02/22 Discharging Provider: Vimal Longo MD Code Status: Attempt Resuscitation Condition at Discharge: Good Discharge Disposition: 01 Home, Self Care - DIAGNOSES Admission Diagnoses: Preeclampsia with severe features Abdominal pain Discharge Diagnoses with Status of Each Condition: Preeclampsia with severe features: Stable Abdominal pain resolved - HPI History of Present Illness: Patient doing well today. Pain is well controlled with no significant abdominal pain. Some incisional pain, worse when she moves, but as expected. No headache, vision changes, right upper quadrant pain. Swelling is greatly improved. - HOSPITAL COURSE Hospital Course: Patient is a 30-year-old G1, P1 who presented 5 days after primary low-transverse section for failure to progress and preeclampsia with severe features. She had an episode of nausea and abdominal pain prior to delivery, and again several days postdelivery. This brought her to the ED again this visit. This pain subsided shortly after arrival. Due to patient's severe range blood pressure, the ED physician started magnesium sulfate which was continued for 12 hours as she had already been treated for 24 hours. She had no additional severe range blood pressures, and were predominantly in the 110s to 120s over 60s to 70s. She continued on nifedipine 30 mg XL without issue. Her swelling was greatly improved, so she wanted to stop the Lasix which seemed appropriate and was done. On admission she had an elevated a leukocytosis with a WBC of 20. We discussed possible etiologies being postsurgical, although delayed, acute pain, infection. We did not find a source, and resolved on its own by the next day.24 hours post magnesium, she had had no abnormal blood pressures and decision was made to discharge. Her abdominal pain seemed very transient in nature. While something like gallstones could explain this, she had a negative exam and no significant change in her alkaline phosphatase. Decision was made to delay ultrasound as she was asymptomatic. If she becomes symptomatic as an outpatient, she should consider right upper quadrant ultrasound. We did discuss controlling her nausea at home to see if this would help prevent severe abdominal pain. Prescription was sent for ondansetron and she will try this moving forward. She does have follow-up scheduled in 5 days with her primary CSR TECHNICIAN. - ALLERGIES Allergies/Adverse Reactions: Allergies Allergy/AdvReac Type Severity Reaction Status Date / Time peanut Allergy Unknown Verified 06/01/21 02:37 albuterol [From Ventolin HFA] AdvReac Unknown Verified 04/05/21 03:09 shrimp AdvReac Unknown Verified 04/05/21 03:09 - MEDICATIONS Home Medications: Ambulatory Orders Medication Instructions Recorded Confirmed Metoprolol Succinate [Toprol Xl] 25 mg PO ONCE 04/05/21 06/01/21 Pnv No.95/Ferrous Fum/Folic AC 1 tab PO DAILY 04/05/21 06/01/21 [ [place]] Furosemide [Lasix] 20 mg PO DAILY 06/01/21 06/01/21 Furosemide [Lasix] 20 mg PO ONCE 06/01/21 06/01/21 Metoprolol Succinate [Toprol Xl] 25 mg PO ONCE 06/01/21 06/01/21 NIFEdipine [Procardia Xl] 30 mg PO DAILY 06/01/21 06/01/21 Oxycodone HCl [Roxicodone] 5 mg PO PRN PRN 06/01/21 06/01/21 Potassium Chloride 20 meq PO DAILY 06/01/21 06/01/21 Ondansetron HCl 4 mg PO Q6HR PRN #20 tablet 06/02/21 - LABS Result Diagrams: 06/02/21 05:07 06/02/21 05:07 - FOLLOW UP Follow Up: Dr. Zabala in 1 week. - TIME SPENT Time Spent in Discharge (Minutes): 30
[2021-06-02 14:39] LABS: BILIRUBIN,URINE NEGATIVE (NEGATIVE); GLUCOSE, URINE (UA) NEGATIVE (NEGATIVE); KETONES,URINE (UA) NEGATIVE (NEGATIVE); LEUKOCYTE ESTERASE, URINE TRACE (NEGATIVE); NITRITE,URINE NEGATIVE (NEGATIVE); OCCULT BLOOD,URINE LARGE (NEGATIVE); PROTEIN,URINE 30 mg/dL (NEGATIVE); UROBILINOGEN,URINE 0.2 (NORMAL) E.U./dL (NORMAL)
[2021-06-02 14:54] LABS: CLARITY,URINE HAZY (CLEAR)
[2021-06-02 14:58] LABS: BACTERIA,URINE Few /HPF (None Seen); RBC,URINE TNTC /HPF (0-5); SQUAMOUS EPITHELIAL CELL,UR FEW Squamous (<= Few); WBC,URINE 0-3 /HPF (0-5)
== END 2021-06-02 14:50 | disposition home or self-care (01) | DRG 776 ==
LOC: EDUNIT# → EDBD → ED 02:21 → FBP 06:12
PROVIDERS: ADMIT Obstetrics & Gynecology; ATTEND Obstetrics & Gynecology
DX: O14.15 Severe pre-eclampsia, complicating the puerperium (principal); O99.13 Other diseases of the blood and blood-forming organs and certain disorders involving the immune mechanism complicating the puerperium; I47.1 Supraventricular tachycardia; O99.43 Diseases of the circulatory system complicating the puerperium; D72.829 Elevated white blood cell count, unspecified; O90.89 Other complications of the puerperium, not elsewhere classified; R11.2 Nausea with vomiting, unspecified; M54.50 Low back pain, unspecified; Z20.822 Contact with and (suspected) exposure to COVID-19; Z79.899 Other long term (current) drug therapy
CPT/HCPCS: 36415; 80053; 80306; 80320; 81001; 82550; 83605; 83690; 83735; 83880; 84100; 84443; 85025; 85027; 85610; 87040; 87086; 87635; 93005; A9270; J2060; J7120; 81003; 96365; 96366; 96375; 99284; J3475